=== PATIENT | male | born 2000 | race Caucasian/White ===

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

== ENCOUNTER → 2024-02-29 | Outpatient (CLI) | payer MEDICAID | END | disposition home or self-care (01) | LOC: RAD 15:05 | PROVIDERS: ATTEND Family Medicine | DX: M54.9 Dorsalgia, unspecified (principal) | CPT/HCPCS: 72040; 72070; 72110 ==